=== PATIENT | female | born 2000 | race Caucasian/White ===

== ENCOUNTER 2024-11-14 11:12 | Day surgery (SDC) | payer OTHER ==
[~2024-11-14] VITALS: Ht 149.9 cm; Wt 72.1 kg
[~2024-11-14 11:12] MED LIST: ACETAMINOPHEN 500 MG TAB PO ONE; ALBU8.5H; FERR325T82 PO; FLUT12AE3; JOLETAB PO; LIDOCAINE 2% 100 MG/5 ML SDV (FOR ANES.) As Ordered ONE; MIDAZOLAM INJ 2 MG/2 ML VIAL As Ordered ONE; ROCURONIUM BROMIDE 50MG/5ML VIAL As Ordered ONE; SCOPOLAMINE 1MG TRANSDERMAL PATCH TOP ONE
[2024-11-14 11:35] LABS: PLATELET COUNT, AUTOMATED 425 10^3/uL (150-450)
[2024-11-14] MEDS ORDERED: ESMOLOL 100 MG/10 ML VIAL As Ordered ONE (13:55)
[2024-11-14] MEDS ORDERED: ONDANSETRON 4MG 2ML VIAL As Ordered ONE (13:59)
[2024-11-14] MEDS ORDERED: KETOROLAC 30 MG/ML 1 ML VIAL As Ordered ONE (13:59)
[2024-11-14] MEDS ORDERED: dexAMETHasone 4 MG/ML 1 ML VIAL As Ordered ONE (14:00)
[2024-11-14] MEDS: METHYLENE BLUE 0.5% (5 MG/ML) 10 ML AMP As Ordered ONE (14:10)
[2024-11-14] MEDS ORDERED: SUGAMMADEX SODIUM 500 MG/5 ML VIAL As Ordered ONE (14:18)
[2024-11-14] MEDS ORDERED: DESFLURANE 240 ML INHALANT As Ordered ONE (14:26)
[2024-11-14] MEDS: SILVER NITRATE APPLICATOR (1 = QTY 10) As Ordered ONE (14:49)
[2024-11-14] MEDS: TRANEXAMIC ACID 100 MG/ML 10ML VIAL As Ordered ONE (14:50)
[2024-11-14] MEDS: LIDOCAINE 1% SDV 30 ML VIAL As Ordered ONE (14:57)
[2024-11-14] MEDS ORDERED: HYDROMORPHONE HCL 0.5 MG/0.5 ML SYRINGE IV PRN (15:05)
[2024-11-14] MEDS ORDERED: ONDANSETRON 4MG 2ML VIAL IV PRN (15:05)
[2024-11-14 16:40] VITALS: BP 115/71; TEMP 97; O2SAT 99
== END 2024-11-14 16:52 | disposition home or self-care (01) ==
LOC: M SDC 11:12
PROVIDERS: ATTEND General Practice
DX: N93.9 Abnormal uterine and vaginal bleeding, unspecified (principal); D25.9 Leiomyoma of uterus, unspecified; D64.9 Anemia, unspecified; J45.909 Unspecified asthma, uncomplicated; Z79.51 Long term (current) use of inhaled steroids; Z79.899 Other long term (current) drug therapy
CPT/HCPCS: 36415; 58350; 58561; 58662; 81025; 85027; 86850; 86900; 86901; 88305; J0665; J1100; J1805; J1885; J2250; J2405; J3010; J3490